=== PATIENT | male | born 1970 | race Caucasian/White ===

== ENCOUNTER 2021-06-12 07:32 | Day surgery (SDC) | payer OTHER ==
[~2021-06-12] VITALS: Ht 195.6 cm; Wt 125.0 kg
--- NOTE | 2021-06-12 07:45 | NUR ---
PT ARRIVED TO RM 281. ALERT AND ORIENTED X4. AMBULATORY WITH STEADY GAIT. NO APPRENT DISTRESS NOTED. PT ORIENTED TO ROOM AND CALL LIGHT SYSTEM. STAFF AT BEDSIDE TO INITIATED IV AND COMPLETE ASSESSMENT.
[2021-06-12 08:02] VITALS: BP 175/105
--- NOTE | 2021-06-12 08:04 | NUR ---
NOTIFIED WITH PT VS. NEW ORDERS RECEIVED AT THIS TIME.
[2021-06-12] MEDS ORDERED: LEXAPRO20 MG PO (08:29)
[2021-06-12] MEDS ORDERED: JANUMET XR1 TA1 PO (08:30)
[2021-06-12] MEDS ORDERED: TRULICITY0.75 MG/0. SC (08:31)
[2021-06-12] MEDS ORDERED: ZESTRIL10 M1 PO (08:31)
[2021-06-12 09:02] LABS: HEMATOCRIT 43.5 % (39.0-50.0); HEMOGLOBIN 14.9 g/dl (14.0-18.0); IMMATURE GRANULOCYTES 0.2 % (0.0-5.0); MEAN CELL VOLUME 89.7 fL CALC (80.0-100.0); MEAN CORPUSCULAR HGB 30.7 pG CALC (26.0-32.0); MEAN CORPUSCULAR HGB CONC 34.3 g/dL CAL (32.0-36.0); NEUT# 2.94 thou/uL (1.82-7.42); RED BLOOD COUNT 4.85 mill/uL (4.70-6.10); RED CELL DISTRI WIDTH 12.8 % (11.5-15.5)
[2021-06-12 09:24] LABS: ALBUMIN 4.4 g/dL (3.2-5.0); ALKALINE PHOSPHATASE 69 u/l (38-126); ANION GAP 10 (6-22 (CALC)); BILIRUBIN, TOTAL 0.8 mg/dL (0.0-1.4); BUN 18 mg/dL (9-20); BUN/CREATININE RATIO 17 (12-20 (CALC)); CARBON DIOXIDE 32 mmol/l (22-30); CHLORIDE 101 mmol/l (95-108); CREATININE 1.1 mg/dL (0.7-1.3); GFR > 60 ML/MIN (>=60 (CALC)); GFR FOR AFR.AMER. > 60 ML/MIN (>=60 (CALC)); POTASSIUM 3.9 mmol/l (3.5-5.1); SGOT/AST 26 u/l (17-59); SODIUM 140 mmol/l (137-146); TOTAL PROTEIN 7.1 g/dL (6.3-8.2)
[2021-06-12 10:00] VITALS: BP 147/93
--- NOTE | 2021-06-12 10:15 | NUR ---
REPEAT VS CALLED TO . NEW ORDERS RECEIVED AT THIS TIME.
[2021-06-12] MEDS ORDERED: CLONIDINE0.1 MG PO (12:30)
[2021-06-12] MEDS ORDERED: NALTREXONE50 MG PO (12:31)
[2021-06-12] MEDS ORDERED: KLONOPIN0.5 MG PO (12:31)
--- NOTE | 2021-06-12 16:50 | NUR ---
pt brought up to room per dr. malik and staff, vital signs stable. 02 on 3 l/per n/c. pt snoring at this time, but will open eyes when asked to pt tolerated procedure well, pt was cathed before leaving treatment room with 500cc light yellow urine, changed sheets and cleaned up with new diaper applied. iv in right hand has lr infusing at 250cc/hour, left ac saline lock with coban applied.
[2021-06-12 16:54] VITALS: BP 126/75
--- NOTE | 2021-06-12 17:08 | NUR ---
pt remains resting quietly on stretcher
[2021-06-12 19:00] VITALS: BP 165/111
--- NOTE | 2021-06-12 19:35 | NUR ---
PT RESTING IN BED WITH EYES CLOSED, NO SIGNS OF DISTRESS NOTED, RESP EVEN AND UNLABORED. SPO2 91% PLACED ON 2L NC INCREASED TO 98%. IVF INFUSING TO #20 RH, PT APPEARS CALM AT THIS TIME, ASSESSMENT COMPLETED, BED ALARM FOR SAFETY, CALL LIGHT IN REACH, CONTINUE TO MONITOR.
--- NOTE | 2021-06-12 21:01 | NUR ---
PT HAD A LARGE AMT OF URINE, PERICARE PROVIDED, BRIEF APPLIED. PT TOLERATED WELL. BED ALARM FOR SAFETY, CALL LIGHT IN REACH, CONTINUE TO MONITOR.
[2021-06-12 23:00] VITALS: BP 154/97
--- NOTE | 2021-06-12 23:28 | NUR ---
PT RESTING IN BED WITH EYES CLOSED, EASILY AROUSED TO VERBAL STIMULI, PO FLUIDS PROVIDED PT TOLERATED WELL. MEDICATED PER MAR, NO SIGNS OF DISTRESS NOTED, RESP EVEN AND UNLABORED.BED ALARM FOR SAFETY, CALL LIGHT IN REACH,CONTINUE TO MONITOR.
[2021-06-13 04:00] VITALS: BP 146/83
--- NOTE | 2021-06-13 04:02 | NUR ---
PT RESTING IN BED WITH EYES CLOSED, EASILY AROUSED TO VERBAL STIMULI, PT MEDICATED PER MAR, NO SIGNS OF DISTRESS NOTED, RESP EVEN AND UNLABORED. BED ALARM FOR SAFETY, CALL LIGHT IN REACH, CONTINUE TO MONITOR.
[2021-06-13 05:00] LABS: ALBUMIN 4.3 g/dL (3.2-5.0); ALKALINE PHOSPHATASE 67 u/l (38-126); ANION GAP 12 (6-22 (CALC)); BILIRUBIN, TOTAL 0.8 mg/dL (0.0-1.4); BUN 16 mg/dL (9-20); BUN/CREATININE RATIO 17 (12-20 (CALC)); CARBON DIOXIDE 29 mmol/l (22-30); CHLORIDE 106 mmol/l (95-108); GFR > 60 ML/MIN (>=60 (CALC)); GFR FOR AFR.AMER. > 60 ML/MIN (>=60 (CALC)); MAGNESIUM 2.3 mg/dL (1.6-2.3); POTASSIUM 4.1 mmol/l (3.5-5.1); SGOT/AST 24 u/l (17-59); SODIUM 143 mmol/l (137-146); TOTAL PROTEIN 7.1 g/dL (6.3-8.2)
--- NOTE | 2021-06-13 06:05 | NUR ---
PT UP TO SIDE OF BED TO USE URINAL, 600CC OF DARK YELLOW URINE. PT VOICES NO NEEDS OR COMPLAINTS AT THIS TIME. DECAL MAKER AT BEDSIDE ASKING PT IF HE IS READY FOR A SHOWER, PT DENIES WITH A NOD OF HIS HEAD. PT QUICKLY BACK TO BED, BED ALARM FOR SAFETY, CALL LIGHT IN REACH, NO SIGNS OF DISTRESS NOTED, RESP EVEN AND UNALBORED. CONTINUE TO MONITOR.
--- NOTE | 2021-06-13 07:00 | NUR ---
REPORT RECEIVED FROM HANNA FERNANDES.
--- NOTE | 2021-06-13 07:40 | NUR ---
PT RESTING IN SEMI FOWLERS POSITION,A&O X3 BUT DROWSY;PT ASSISTED TO RESTROOM PER REQUEST AND X2 PERSON ASSIST;PT HAD MODERATE/LOOSE BM, DHEERAJ CARE PROVIDED AND PT ASSISTED BACK TO BED;ASSESSMENT COMPLETED;PT DENIES ANY CURRENT PAIN OR DISCOMFORTS,PAIN SCALE AND REPORTING EDUCATED;RESPIRATIONS EVEN AND UNLABORED ON RA,CLEAR LUNG SOUNDS;ABDOMEN SOFT ON PALPATION AND ACTIVE IN ALL 4 QUADRANTS;STRONG PEDAL PULSES;SKIN INTACT;#18G TO LAC FLUSHED AND PATENT,SITE APPEARS HEALTHY;ENCOURAGED PT TO EAT BREAKFAST BUT DECLINES AT THIS TIME;PT DENIES ANY ADDITIONAL NEEDS AND IS ENCOURAGED TO CALL FOR ASSISTANCE IF NEEDED;FALL PRECAUTIONS IN PLACE WITH BED IN THE LOWEST POSITION AND BED ALARM ON FOR SAFETY;CALL LIGHT IN REACH;WILL CONTINUE TO MONITOR
[2021-06-13 08:15] VITALS: BP 168/109
--- NOTE | 2021-06-13 08:20 | NUR ---
BP 168/109 HR 100. PT MEDICATED WITH ALL MORNING MEDICATIONS.WILL CONTINUE TO MONITOR FOR EFFECTIVENESS.
[2021-06-13 09:00] VITALS: BP 156/106
--- NOTE | 2021-06-13 09:00 | NUR ---
BP RE-CHECK 156/106 HR 108.PT SLEEPING AND ASYMPTOMATIC.CALL PLACED TO MD, AWAITING CALL BACK.CALL LIGHT IN REACH;WILL CONTINUE TO MONITOR
[2021-06-13 09:25] VITALS: BP 156/100
--- NOTE | 2021-06-13 09:25 | NUR ---
BP RE-CHECK 156/100 HR 87 O2 94. PT REMAINS SLEEPING.NO S/S OF DISTRESS NOTED;CALL LIGHT IN REACH;WILL CONTINUE TO MONITOR
--- NOTE | 2021-06-13 10:10 | NUR ---
SPOKE WITH ABOUT ELEVATED BP. NO NEW ORDERS RECEIVED AT THIS TIME;WILL CONTINUE TO MONITOR
[2021-06-13 10:57] VITALS: BP 154/99
--- NOTE | 2021-06-13 11:40 | NUR ---
PT APPEARS TO BE SLEEPING IN SEMI FOWLERS POSITION;RESPIRATIONS EVEN AND UNLABORED ON O2 @ 2L VIA NC;NO S/S OF DISTRESS NOTED;IV SITE PATENT;ACCUCHECK OBTAINED RESULTING IN 168;ALL SAFETY PRECAUTIONS REMAIN IN PLACE WITH BED IN THE LOWEST POSITION AND BED ALRAM ON FOR SAFETY;CALL LIGHT IN REACH;WILL CONTINUE TO MONITOR
--- NOTE | 2021-06-13 14:40 | NUR ---
PT REPOSITIONED INTO RECLINER AT THIS TIME;PT DENIES ANY CURRENT PAIN OR DISCOMFORTS, REMAINS DROWSY;RESPIRATIONS EVEN AND UNLABORED ON RA;IV SITE NOTED TO BE DISLODGED,SITE REMOVED WITH CATHETER INTACT;PT DENIES ANY ADDITIONAL NEEDS;ENCOURAGED TO CALL FOR ASSISTANCE IF NEEDED;FALL PRECAUTIONS REMAIN IN PLACE WITH BED ALARM ON FOR SAFETY;CALL LIGHT IN REACH;WILL CONTINUE TO MONITOR
--- NOTE | 2021-06-13 15:45 | NUR ---
AT BEDSIDE DISCUSSING POC INCLUDING PLANS TO D/C HOME.
--- NOTE | 2021-06-13 16:00 | NUR ---
ALL DISCHARGE INSTRUCTIONS PROVIDED AT THIS TIME;PT INSTRUCTED TO F/U WITH [facility] AND TAKE MEDICATIONS DIRECTED.RX X3 SENT TO [facility];PT DRESSED AND WC PROVIDED FOR D/C HOME;ALL BELONGINGS LEFT WITH PT AND PT TRANSPORTED TO [facility] ACCOMPANIED BY [facility] STAFF.FAMILY TO TRANSPORT PT HOME.
[2021-06-13 16:05] VITALS: BP 162/101
--- NOTE | 2021-06-13 16:05 | NUR ---
Discharge instructions given. Patient verbalizes understanding of same. Discharged in stable condition via Wheelchair to Home with family. All belongings sent with pt. [facility] ACCOMPAN[facility] BY [facility] STAFF MEMBER. FAMILY TO TRANSPORT PT HOME.
== END 2021-06-13 16:05 | disposition home or self-care (01) | DRG 897 ==
LOC: ANR 07:32 → MS2 07:33 → ANR 15:06
PROVIDERS: ATTEND Anesthesiology
DX: F11.20 Opioid dependence, uncomplicated (principal)
CPT/HCPCS: J2060; J2354